=== PATIENT | male | born 1960 | race Caucasian/White ===

== ENCOUNTER 2017-05-17 16:11 | Inpatient (IN) | payer BC ==
[~2017-05-17] VITALS: Ht 193 cm; Wt 107.3 kg
[2017-05-17 17:27] VITALS: BP 139/75
[2017-05-17] MEDS ORDERED: PERCOCET 5/31 TABLET PO (18:17)
[2017-05-17] MEDS ORDERED: VALIUM5 MG PO (18:17)
[2017-05-17] MEDS ORDERED: CALCIUM ASCORB500 MG PO (18:18)
[2017-05-17] MEDS ORDERED: DOVONEX 0.005%60 GM PO (18:19)
[2017-05-17] MEDS ORDERED: BACLOFEN20 MG PO (18:19)
[2017-05-17] MEDS ORDERED: VITAMIN D400 UNIT PO (18:21)
[2017-05-17] MEDS ORDERED: DICLOFENAC 3% TP (18:22)
[2017-05-17] MEDS ORDERED: SOLU-MEDRO1000 MG/1 IV (18:30)
[2017-05-17 23:45] VITALS: BP 97/54
[2017-05-18 05:32] VITALS: BP 124/78
[2017-05-18 07:07] LABS: HEMATOCRIT 44.3 % (38.0-50.0); HEMOGLOBIN 14.7 G/DL (12.5-16.6); MCH 30.2 PG (29.0-34.0); MCHC 33.2 G/DL (30.0-36.0); MCV 91.2 FL (86-99); PLATELET COUNT 183 K/uL (156-360); RBC DIS.WIDTH-CV 13.1 % (11.8-14.6); RBC DIS.WIDTH-SD 44.6 % (39-53); RED BLOOD COUNT 4.86 M/uL (4.00-5.50); WHITE BLOOD COUNT 4.7 K/uL (4.1-10.2)
[2017-05-18 07:38] LABS: ALBUMIN 3.5 G/DL (3.2-4.8); ALKALINE PHOSPHATASE 167 IU/L (3-129); ALT (GPT) 87 IU/L (3-49); AST (GOT) 103 IU/L (2-34); CHLORIDE 103 MEQ/L (99-109); GFR ESTIMATE (CALCULATED) > 59 mL/min/ (58.99-99999); GLUCOSE 102 mg/dL (70-99); SODIUM 140 MEQ/L (136-147); TOTAL BILIRUBIN 0.8 MG/DL (0.0-1.0); TOTAL PROTEIN 5.8 G/DL (6.4-8.3); UREA NITROGEN (BUN) 12 mg/dL (9-23)
[2017-05-18 15:15] VITALS: BP 120/57
[2017-05-19 05:48] VITALS: BP 121/74
[2017-05-19 15:04] VITALS: BP 102/66
[2017-05-19 21:30] VITALS: BP 142/74
[2017-05-20 05:10] VITALS: BP 149/65
[2017-05-20 15:42] VITALS: BP 112/54
[2017-05-21 06:21] VITALS: BP 107/61
[2017-05-21 15:35] VITALS: BP 101/54
[2017-05-22 05:47] VITALS: BP 94/50
[2017-05-22 15:09] VITALS: BP 92/60
[2017-05-23 06:53] VITALS: BP 123/60
[2017-05-23 07:28] VITALS: BP 130/61
[2017-05-23 15:30] VITALS: BP 113/60
[2017-05-24 06:09] VITALS: BP 123/81
[2017-05-24 09:28] VITALS: BP 99/57
[2017-05-24 15:08] VITALS: BP 107/64
[2017-05-25 04:51] VITALS: BP 100/57
[2017-05-25 15:17] VITALS: BP 120/75
[2017-05-26 05:49] VITALS: BP 106/73
[2017-05-26 14:56] VITALS: BP 99/54
[2017-05-27 05:27] VITALS: BP 99/53
[2017-05-27 16:02] VITALS: BP 120/74
[2017-05-28 05:30] VITALS: BP 136/77
[2017-05-28 15:22] VITALS: BP 141/64
[2017-05-29 05:18] VITALS: BP 154/72
[2017-05-29 15:27] VITALS: BP 103/62
[2017-05-30 05:02] VITALS: BP 112/59
[2017-05-30 15:39] VITALS: BP 115/71
[2017-05-31 04:43] LABS: HEMATOCRIT 44.3 % (38.0-50.0); MCH 30.5 PG (29.0-34.0); MCHC 33.9 G/DL (30.0-36.0); MCV 90.2 FL (86-99); RBC DIS.WIDTH-SD 43.2 % (39-53); RED BLOOD COUNT 4.91 M/uL (4.00-5.50); WHITE BLOOD COUNT 5.5 K/uL (4.1-10.2)
[2017-05-31 04:45] LABS: PLATELET COUNT 272 K/uL (156-360)
[2017-05-31 05:01] LABS: ALBUMIN 3.9 G/DL (3.2-4.8); CHLORIDE 106 MEQ/L (99-109); POTASSIUM 4.3 MEQ/L (3.7-5.4); SODIUM 139 MEQ/L (136-147); TOTAL BILIRUBIN 0.6 MG/DL (0.0-1.0)
[2017-05-31 05:06] LABS: ALKALINE PHOSPHATASE 127 IU/L (3-129); ALT (GPT) 31 IU/L (3-49); AST (GOT) 31 IU/L (2-34); CREATININE 1.1 MG/DL (0.6-1.3); GFR ESTIMATE (CALCULATED) > 59 mL/min/ (58.99-99999); GLUCOSE 97 mg/dL (70-99); TOTAL PROTEIN 6.3 G/DL (6.4-8.3); UREA NITROGEN (BUN) 18 mg/dL (9-23)
[2017-05-31 06:44] VITALS: BP 112/53
[2017-05-31 15:10] VITALS: BP 103/64; BP 150/64
[2017-06-01 04:53] VITALS: BP 146/74
[2017-06-01 15:05] VITALS: BP 114/74
[2017-06-02 06:01] VITALS: BP 126/75
[2017-06-02 16:34] VITALS: BP 100/62
[2017-06-03 05:17] VITALS: BP 100/65
[2017-06-03 15:57] VITALS: BP 102/67
[2017-06-04 05:24] VITALS: BP 96/54
[2017-06-04 15:29] VITALS: BP 100/66
[2017-06-05 05:07] VITALS: BP 137/72
[2017-06-05 15:09] VITALS: BP 106/66
[2017-06-06 05:21] VITALS: BP 108/71
[2017-06-06 08:24] VITALS: BP 98/57
[2017-06-06 16:28] VITALS: BP 81/60
[2017-06-06 17:52] VITALS: BP 98/58
[2017-06-07 05:36] VITALS: BP 104/55
[2017-06-07 07:30] VITALS: BP 105/56
[2017-06-07 08:58] LABS: HEMATOCRIT 48.6 % (38.0-50.0); HEMOGLOBIN 15.6 G/DL (12.5-16.6); MCH 29.4 PG (29.0-34.0); MCHC 32.1 G/DL (30.0-36.0); MCV 91.7 FL (86-99); PLATELET COUNT 281 K/uL (156-360); RBC DIS.WIDTH-SD 44.2 % (39-53); WHITE BLOOD COUNT 4.9 K/uL (4.1-10.2)
[2017-06-07 09:20] LABS: ALBUMIN 3.8 G/DL (3.2-4.8); ALKALINE PHOSPHATASE 94 IU/L (3-129); ALT (GPT) 32 IU/L (3-49); AST (GOT) 28 IU/L (2-34); CHLORIDE 102 MEQ/L (99-109); GFR ESTIMATE (CALCULATED) > 59 mL/min/ (58.99-99999); GLUCOSE 94 mg/dL (70-99); POTASSIUM 3.9 MEQ/L (3.7-5.4); SODIUM 142 MEQ/L (136-147); TOTAL BILIRUBIN 0.8 MG/DL (0.0-1.0); TOTAL PROTEIN 6.3 G/DL (6.4-8.3); UREA NITROGEN (BUN) 11 mg/dL (9-23)
[2017-06-07 15:22] VITALS: BP 105/67
[2017-06-08 05:09] VITALS: BP 140/75
[2017-06-08] MEDS ORDERED: SENNA PLUS TAB1 EACH PO (12:32)
[2017-06-08] MEDS ORDERED: DOCUSATE SODIU100 MG PO (12:32)
== END 2017-06-08 14:18 | DRG 556 ==
LOC: 3WEST 16:11 → ENPENDDIS 05-29 → EDPENDDISDT 06-08 → 3WEST 06-08 14:18
PROVIDERS: Physical Medicine & Rehabilitation Pain Medicine
PROC: F07M0ZZ Range of Motion and Joint Mobility Treatment of Musculoskeletal System - Whole Body (ICD-10-PCS; principal; 2017-05-17)
DX: R26.2 Difficulty in walking, not elsewhere classified (principal); Z98.1 Arthrodesis status; G35 Multiple sclerosis; M48.02 Spinal stenosis, cervical region; G95.9 Disease of spinal cord, unspecified; R79.89 Other specified abnormal findings of blood chemistry; R25.2 Cramp and spasm; Z83.3 Family history of diabetes mellitus
CPT/HCPCS: 80053; 85027; 97110 GO; 97530 GP; J1644; J2930; J7050